=== PATIENT | male | born 1990 | race Caucasian/White ===

== ENCOUNTER 2021-08-13 13:24 | Emergency (ER) | payer OTHER ==
[~2021-08-13] VITALS: Ht 177.8 cm; Wt 158.8 kg
[2021-08-13 13:25] VITALS: BP 145/97
--- NOTE | 2021-08-13 13:37 | NUR ---
SEEN AND EXAMINED BY .
[2021-08-13] MEDS ORDERED: KETOROLAC TROMETHAMINE INJ 30 MG/ML VIAL IM ONE (17:30)
[2021-08-13] MEDS ORDERED: KETOROLAC TROMETHAMINE INJ 30 MG/ML VIAL ONE (17:31)
[2021-08-13] MEDS ORDERED: COLC0.6C3 PO (17:37)
[2021-08-13] MEDS ORDERED: SULF1TAB48 PO (17:37)
[2021-08-13] MEDS ORDERED: CEPH500C2 PO (17:37)
--- NOTE | 2021-08-13 17:53 | NUR ---
Patient discharged to home in stable condition. Written and verbal after care instructions given. Patient verbalizes understanding of instruction.
== END 2021-08-13 17:55 | disposition home or self-care (01) ==
LOC: ER 13:27
DX: L03.115 Cellulitis of right lower limb (principal); M10.9 Gout, unspecified
CPT/HCPCS: 73610; 73630; 93971; 96372; 99284; J1885

== ENCOUNTER 2021-09-06 16:01 | Emergency (ER) | payer OTHER ==
[~2021-09-06] VITALS: Ht 177.8 cm; Wt 158.8 kg
[~2021-09-06 16:01] MED LIST: CEPH500C2 PO; COLC0.6C3 PO; SULF1TAB48 PO
--- NOTE | 2021-09-06 16:23 | NUR ---
BIBS FOR RIGHT FOOT SWELLING AND PAIN 10/ X2 DAYS. HAS HX OF RIGHT FOOT GOUT. THE PATIENT IS ALERT AND ORIENTED X4. IN ROOM AIR AND DENIES SOB. RESPIRATION REGULAR AND UNLABORED. WILL CONTINUE TO MONITOR THE PATIENT.
[2021-09-06] MEDS ORDERED: KETOROLAC TROMETHAMINE INJ 60 MG/2 ML VIAL IM ONE (17:00)
[2021-09-06] MEDS ORDERED: COLCHICINE 0.6 MG TABLET PO ONE (17:00)
[2021-09-06] MEDS ORDERED: COLC0.6C3 PO (17:03)
[2021-09-06] MEDS ORDERED: NAPR500T6 PO (17:03)
[2021-09-06] MEDS ORDERED: KETOROLAC TROMETHAMINE INJ 30 MG/ML VIAL ONE (17:04)
[2021-09-06] MEDS ORDERED: COLCHICINE 0.6 MG TABLET ONE (17:04)
--- NOTE | 2021-09-06 17:15 | NUR ---
CALLED [facility] WHERE PT IS AN INPATIENT, THEY WILL BE ARRANGING FOR SOMEONE TO COME DESK MAKER NUHA.
--- NOTE | 2021-09-06 17:23 | NUR ---
Patient discharged to home in stable condition. Written and verbal after care instructions given. Patient verbalizes understanding of instruction.
[2021-09-06 17:25] VITALS: BP 138/75
== END 2021-09-06 17:26 ==
LOC: ER 16:05
DX: M79.671 Pain in right foot (principal); F10.10 Alcohol abuse, uncomplicated; E66.01 Morbid (severe) obesity due to excess calories; Z87.39 Personal history of other diseases of the musculoskeletal system and connective tissue; Z68.43 Body mass index [BMI] 50.0-59.9, adult; Z79.899 Other long term (current) drug therapy; Y90.9 Presence of alcohol in blood, level not specified
CPT/HCPCS: 96372; 99283; J1885

== ENCOUNTER 2021-09-25 09:33 | Emergency (ER) | payer OTHER ==
[~2021-09-25] VITALS: Ht 177.8 cm; Wt 113.4 kg
[~2021-09-25 09:33] MED LIST changes: +NAPR500T6 PO
[2021-09-25 09:57] VITALS: BP 142/82
[2021-09-25] MEDS ORDERED: KETOROLAC TROMETHAMINE INJ 30 MG/ML VIAL ONE (10:21)
[2021-09-25] MEDS ORDERED: COLC0.6C3 PO (10:28)
[2021-09-25] MEDS ORDERED: PRED50TA PO (10:28)
[2021-09-25] MEDS: KETOROLAC TROMETHAMINE INJ 30 MG/ML VIAL IM ONE (10:30)
--- NOTE | 2021-09-25 10:38 | NUR ---
Patient discharged to home in stable condition. Written and verbal after care instructions given. Patient verbalizes understanding of instruction.
== END 2021-09-25 10:39 | disposition home or self-care (01) ==
LOC: ER 09:38
DX: M10.072 Idiopathic gout, left ankle and foot (principal); Z87.39 Personal history of other diseases of the musculoskeletal system and connective tissue; Z79.1 Long term (current) use of non-steroidal anti-inflammatories (NSAID); Z79.899 Other long term (current) drug therapy
CPT/HCPCS: 96372; 99283; J1885